=== PATIENT | male | born 1955 | race Caucasian/White ===

== ENCOUNTER 2017-07-17 11:22 | Outpatient (CLI) | payer OTHER | END 2017-07-17 11:23 | disposition home or self-care (01) | LOC: BICRAD 11:22 | PROVIDERS: ATTEND Physician Assistant Medical | DX: R07.9 Chest pain, unspecified (principal) | CPT/HCPCS: 71046 ==

== ENCOUNTER 2018-08-09 09:10 | Inpatient (IN) | payer OTHER ==
[~2018-08-09 09:10] MED LIST: Heparin 1,000 UNITS/ML VIAL ONE
[2018-08-09] MEDS ORDERED: Lidocaine 1% w/Epinephrine 1:100K 20 ML VIAL ONE (09:15)
[2018-08-09] MEDS ORDERED: Adacel (T-DAP) 0.5 ML SYRINGE ONE (09:16)
[2018-08-09] MEDS ORDERED: Fentanyl 100 MCG/2 ML VIAL ONE ×6 (09:18→14:59)
[2018-08-09 09:32] LABS: PTT 22.9 SEC (22.9-36.1); Prothrombin Time 12.9 SEC (12.0-14.7)
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
[2018-08-09 09:38] LABS: ALT (SGPT) 36 U/L (8-55); AST (SGOT) 32 U/L (5-34); Albumin 4.3 g/dL (3.4-4.8); Alkaline Phosphatase 74 U/L (40-150); Anion Gap 15 mmol/L (10-20); BUN (Urea Nitrogen) 16 mg/dL (8.4-25.7); Bilirubin, Total 0.7 mg/dL (0.2-1.2); Calc. Creatinine Clearance 0 mL/min (70-130); Calcium 9.4 mg/dL (7.8-10.44); Carbon Dioxide 24 mmol/L (23-31); Chloride 102 mmol/L (98-107); Estimated GFR-MDRD 49; Globulin 2.7 g/dL (2.4-3.5); Glucose 245 mg/dL (80-115); Lipase 27 U/L (8-78); Potassium 3.9 mmol/L (3.5-5.1); Sodium 137 mmol/L (136-145)
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
--- NOTE | 2018-08-09 09:53 | CT ---
CT head without contrast: Multiple axial tomograms obtained through the head without IV enhancement. INDICATIONS: Trauma COMPARISON: None FINDINGS: Ventricles have normal size and position. No evidence of intracranial mass, hemorrhage, edema, or infarct. Visualized sinuses and mastoids appear clear. Bony calvarium appears unremarkable. Evidence of scalp injury with gas in the subcutaneous tissues of the scalp superiorly on the right IMPRESSION: No evidence of acute intracranial injury. Evidence of scalp injury superiorly on the right.
[2018-08-09 10:04] LABS: Band 8 % (5-11); Eosinophils 2 % (0-10); Hemoglobin 14.4 g/dL (14.0-18.0); Lymphocytes 16 % (21-51); MDiff Complete? YES; Mean Corpuscular Hemoglobin 29.2 pg (27.0-31.0); Mean Corpuscular Volume 91.5 fL (78.0-98.0); Mean Platelet Volume 8.3 fL (7.4-10.4); Monocytes 4 % (0-10); Neutrophil 61 % (42-75); Platelet Count 271 thou/uL (130-400); Platelet Morphology Comment Appears Adequate; RBC Morphology Normal; Reactive Lymphocytes 8 % (0-10); Red Blood Cell (RBC) Count 4.92 mill/uL (4.70-6.10); White Blood Cell (WBC) Count 20.6 thou/uL (4.8-10.8)
--- NOTE | 2018-08-09 10:07 | CT ---
CT cervical spine without contrast: Multiple axial tones obtained through cervical spine with multiplanar reconstruction. INDICATIONS: Trauma COMPARISON: none FINDINGS: Cervical vertebra maintain normal height and alignment.. Moderate degenerative changes. Loss of disc space at C4-5, C5-6, and C6-7. Hypertrophic spurring and spondylosis at these levels is prominent. There is a defect in anterior ring of the right foramen transversarium at C3. This appear to be corti cated and is favored to represent old injury. No other evidence of acute fracture or subluxation. IMPRESSION: Moderate degenerative changes cervical spine. Defect involving the right foramen transversarium at C3 is favored to represent old injury or degenerative change. Discussed with Dr. Briggs
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
--- NOTE | 2018-08-09 10:37 | RAD ---
Radiograph left elbow 4 views: 08/09/2018 HISTORY: 63-year-old male status post acute traumatic injury to left elbow FINDINGS: No dislocation. No fracture identified. Positioning of lateral view is suboptimal to evaluate for dis placed joint capsule. IMPRESSION: No fracture identified.
--- NOTE | 2018-08-09 10:37 | RAD ---
EXAM: Left tibia-fibula: 4 views INDICATIONS: Trauma COMPARISON: None. FINDINGS: Comminuted displaced fractures involving the distal diaphysis of tibia and fibula. Oblique mildly displaced fracture involving the proximal fibula. IMPRESSION: Tibia fibula fractures as described
--- NOTE | 2018-08-09 10:39 | RAD ---
EXAM: Left knee: 4 views INDICATIONS: Trauma COMPARISON: None. FINDINGS: Oblique minimally displaced fracture involving the proximal fibula. No other fracture at th e knee. No joint effusion. IMPRESSION: Fracture proximal fibula
[2018-08-09 10:42] LABS: Phosphorus 3.3 mg/dL (2.3-4.7)
--- NOTE | 2018-08-09 10:42 | RAD ---
EXAM: Right hand: 3 views INDICATIONS: Trauma COMPARISON: None. FINDINGS: Mildly displaced fractures involving the base of the second and fifth metacarpals at the ca rpometacarpal joints. No other definite fracture. Degenerative changes carpals and IP joints. IMPRESSION: Fractures involving proximal second and fifth metacarpals
[2018-08-09] MEDS ORDERED: Ondansetron ODT 4 MG TAB PO PRN (10:52)
[2018-08-09] MEDS ORDERED: Morphine 2 MG/ML SYRINGE SLOW IVP PRN (10:52)
[2018-08-09] MEDS ORDERED: Morphine 4 MG/ML VIAL SLOW IVP PRN (10:52)
[2018-08-09] MEDS ORDERED: Ondansetron PF 4 MG/2 ML Vial IVP PRN ×2 (10:52→14:43)
[2018-08-09] MEDS ORDERED: Dextrose 50% Abboject 50 ML SYRINGE SLOW IVP PRN (10:52)
[2018-08-09] MEDS ORDERED: Dextrose 5% in Water 1,000 ML IV PRN (10:52)
[2018-08-09] MEDS ORDERED: traMADol HCl 50 MG TAB PO PRN (10:57)
--- NOTE | 2018-08-09 11:09 | RAD ---
EXAM: Left hand: 3 views INDICATIONS: Trauma COMPARISON: None. FINDINGS: Severe DJD at the first carpal metacarpal joint with hypertrophic spurring and joint narrow ing. Collapse of the trapezium which is probably chronic. I cannot exclude fracture from the base of the first metacarpal at the carpometacarpal joint. I cannot exclude fracture of the trapezium. Fracture fragment from the base of the second metacarpal ventrally. Degenerative changes DIP joints and MCP joints. Deformity of the distal first metacarpal appears to r epresent old injury. IMPRESSION: 1. Fracture involving the base of the second metacarpal with fracture extending to the carpometacarpa l joint. 2. Severe DJD at the first carpometacarpal joint. Evidence of fracture fragment from the base of the first metacarpal at this joint.
[2018-08-09] MEDS ORDERED: ISOVUE-370 76%-LOCM 1 ML ONE (11:10)
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
[2018-08-09] MEDS ORDERED: Neomycin-Polymyxin 1 ML AMP ONE (11:35)
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
[2018-08-09] MEDS ORDERED: Lidocaine 1% PF 5 ML VIAL ONE (11:55)
[2018-08-09] MEDS ORDERED: Rocuronium Bromide 10 MG/ML (10ML VIAL) ONE (11:55)
[2018-08-09] MEDS ORDERED: PROPOFOL 200 MG/20 ML VIAL ONE (11:55)
[2018-08-09] MEDS ORDERED: ePHEDrine 50 MG/ML VIAL ONE (11:55)
[2018-08-09] MEDS ORDERED: PHENYLEPHRINE-NS 100 MCG/ML 10 ML SYRINGE ONE (11:55)
[2018-08-09] MEDS ORDERED: Glycopyrrolate 0.2 MG/ML 5 ML SYRINGE ONE (11:55)
[2018-08-09] MEDS ORDERED: Succinylcholine Chloride 20 MG/ML 10 ml SYRINGE FS ONE (11:55)
[2018-08-09] MEDS ORDERED: traMADol HCl 50 MG TAB PO SCH (12:00)
[2018-08-09] MEDS ORDERED: Acetaminophen 1,000 MG in Premix Bag 1 BAG IVPB SCH (12:00)
[2018-08-09] MEDS ORDERED: Phenylephrine HCL 10 MG/ML VIAL ONE (13:05)
[2018-08-09] MEDS ORDERED: Albumin 5% 500 ML ONE (13:05)
[2018-08-09] MEDS ORDERED: Sodium Bicarb 50 MEQ/50 ML Abboject 8.4% SYRINGE ONE (13:08)
--- NOTE | 2018-08-09 14:37 | RAD ---
LEFT TIBIA FIBULA: Two fluoroscopic images from OR presented. INDICATION: Intraoperative imaging during internal fixation. FINDINGS/IMPRESSION: A pin transfixes the distal tibia. POS: OFF
[2018-08-09] MEDS ORDERED: Naloxone HCl 0.4 mg/ml Vial IV PRN (14:43)
[2018-08-09] MEDS ORDERED: Zolpidem Tartrate 5 MG TAB PO PRN (14:43)
[2018-08-09] MEDS ORDERED: Promethazine HCl 25 MG/ML VIAL SLOW IVP PRN (14:43)
[2018-08-09] MEDS ORDERED: Ketorolac Tromethamine 30 MG/ML VIAL IVP PRN (14:43)
[2018-08-09] MEDS ORDERED: Ondansetron HCl/PF 4 MG/2 ML Vial IVP PRN (14:43)
[2018-08-09] MEDS ORDERED: diphenhydrAMINE 50 MG/ML VIAL IVP PRN (14:43)
[2018-08-09] MEDS ORDERED: Promethazine HCl 25 MG/ML VIAL IM PRN ×2 (14:43)
[2018-08-09] MEDS ORDERED: diphenhydrAMINE 50 MG/ML VIAL IM PRN (14:43)
[2018-08-09] MEDS ORDERED: HYDROmorphone 2 MG/ML VIAL SLOW IVP PRN (14:43)
[2018-08-09] MEDS ORDERED: fentaNYL Citrate/PF 2,000 MCG in Sodium Chloride 0.9% 60 ML IV PRN (14:43)
[2018-08-09] MEDS ORDERED: diphenhydrAMINE 25 MG CAP PO PRN (14:43)
[2018-08-09] MEDS ORDERED: PACU-Morphine 4MG/ML VIAL SLOW IVP PRN (14:43)
[2018-08-09] MEDS ORDERED: Communication Order-Pharmacy FS SCH (14:45)
[2018-08-09] MEDS ORDERED: HYDROmorphone 2 MG/ML VIAL ONE (15:16)
[2018-08-09 17:50] VITALS: BMI 37.9
[2018-08-09] MEDS: Gabapentin 300 MG CAP PO SCH ×2 (18:12→21:18)
[2018-08-09] MEDS: CEFAZOLIN 2 GM in Premix Bag 1 BAG IVPB SCH (18:20)
[2018-08-09] MEDS: Sodium Chloride 0.9% 1,000 ML IV SCH ×2 (18:21)
--- NOTE | 2018-08-09 20:02 | PDOC.EVN ---
Event Note - Event Note Event Note: The patient was evaluated after OR. He is awake , alert and oriented X4. GCS 15. Denies neck pain, Neck assessment normal, no tenderness or step off. No pain with full ROM. C-spine cleared. Laceration noted behind left ear. Site cleaned and steri strips applied per patient request. Tolerating full liquid diet. Will advance as tolerated.
[2018-08-09] MEDS ORDERED: Silver Sulfadiazine 1% Cream 50 GM TUBE TP SCH (21:00)
[2018-08-09] MEDS: Silver Sulfadiazine 1% Cream 50 GM JAR TOP SCH (21:17)
[2018-08-09] MEDS: Senokot S 8.6-50 MG TAB PO SCH (21:18)
[2018-08-09] MEDS: Bacitracin Zinc 1 Packet TOP SCH (21:18)
[2018-08-09] MEDS: Famotidine/PF 20 mg/2ml Vial SLOW IVP SCH (21:18)
[2018-08-10] MEDS ORDERED: Acetaminophen 500 MG TAB PO SCH
[2018-08-10] MEDS: CEFAZOLIN 2 GM in Premix Bag 1 BAG IVPB SCH ×3 (01:00→18:21)
[2018-08-10] MEDS: Sodium Chloride 0.9% 1,000 ML IV SCH ×3 (03:35→20:20)
[2018-08-10] MEDS: Cyclobenzaprine 10 MG TAB PO PRN ×2 (04:54→21:03)
[2018-08-10] MEDS ORDERED: Lactated Ringer's 500 ML IV SCH ×2 (08:30→08:45)
--- NOTE | 2018-08-10 08:36 | RAD ---
PORTABLE CHEST: HISTORY: Followup chest tube. COMPARISON: 08/09/2018. FINDINGS/IMPRESSION: Right chest tube is again noted. Subcutaneous emphysema on the right is seen. The patient is rotate d which mildly distorts the chest. There is a suggestion of a tiny right apical pneumothorax. The left lung appears expanded and clear. The right rib fractures have been previously described. POS: OFF
[2018-08-10 09:01] LABS: Anion Gap 16 mmol/L (10-20); BUN (Urea Nitrogen) 35 mg/dL (8.4-25.7); Calc. Creatinine Clearance 47 mL/min (70-130); Calcium 7.9 mg/dL (7.8-10.44); Carbon Dioxide 19 mmol/L (23-31); Chloride 108 mmol/L (98-107); Estimated GFR-MDRD 22; Glucose 145 mg/dL (80-115); Magnesium 1.5 mg/dL (1.6-2.6); Phosphorus 2.8 mg/dL (2.3-4.7); Potassium 5.6 mmol/L (3.5-5.1); Sodium 137 mmol/L (136-145)
[2018-08-10] MEDS ORDERED: HYDROcodone/Acetaminophen 10/325 mg Tablet PO PRN (09:06)
[2018-08-10] MEDS ORDERED: Loratadine 10 MG TAB PO PRN (09:06)
[2018-08-10 09:32] LABS: #Lymphocytes 2.5 thou/uL (1.20-3.40); #Neutrophils 9.9 thou/uL (1.40-6.50); %Basophils 0.2 % (0.0-1.0); %Eosinophils 0.1 % (0.0-10.0); %Lymphocytes 17.2 % (21.0-51.0); %Neutrophils 68.4 % (42.0-75.0); Hemoglobin 11.2 g/dL (14.0-18.0); Mean Corpuscular HGB CONC 31.6 g/dL (32.0-36.0); Mean Corpuscular Hemoglobin 29.4 pg (27.0-31.0); Mean Corpuscular Volume 93.2 fL (78.0-98.0); Mean Platelet Volume 8.5 fL (7.4-10.4); Platelet Count 202 thou/uL (130-400); RBC Distribution Width 12.2 % (11.5-14.5); Red Blood Cell (RBC) Count 3.82 mill/uL (4.70-6.10); White Blood Cell (WBC) Count 14.5 thou/uL (4.8-10.8)
[2018-08-10] MEDS: Polyethylene Glycol 3350 17 GM Packet PO SCH (09:36)
[2018-08-10] MEDS: Bacitracin Zinc 1 Packet TOP SCH ×2 (09:36→20:13)
[2018-08-10] MEDS: Gabapentin 300 MG CAP PO SCH ×3 (09:36→20:14)
[2018-08-10] MEDS: Senokot S 8.6-50 MG TAB PO SCH ×2 (09:37→20:14)
[2018-08-10] MEDS: Famotidine/PF 20 mg/2ml Vial SLOW IVP SCH (09:37)
[2018-08-10] MEDS: Silver Sulfadiazine 1% Cream 50 GM JAR TOP SCH ×2 (09:41→20:15)
[2018-08-10] MEDS: Bupropion 150 MG XL TAB PO SCH (10:03)
[2018-08-10] MEDS: busPIRone HCl 5 MG TAB PO SCH ×2 (10:03→20:14)
[2018-08-10] MEDS ORDERED: Magnesium Sulfate 4 GM in Sodium Chloride 0.9% 250 ML 250 ML IVPB SCH (10:45)
[2018-08-10] MEDS ORDERED: Magnesium 2 GM/50 ML 4 GM in Premix Bag 1 BAG IVPB SCH (10:45)
[2018-08-10] MEDS ORDERED: Sodium Chloride 0.9% 500 ML IV SCH (10:45)
[2018-08-10] MEDS ORDERED: Lidocaine 5% Patch TD SCH (12:30)
[2018-08-10] MEDS: Acetaminophen 500 MG TAB PO SCH ×2 (12:37→18:20)
--- NOTE | 2018-08-10 13:50 | RAD ---
LEFT HAND: Two fluoroscopic views from OR are presented. INDICATION: Imaging during intraoperative fixation open reduction internal fixation. FINDINGS/IMPRESSION: There is a pin transfixing the 2nd carpometacarpal joint and extending into the scaphoid. POS: OFF
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
[2018-08-10] MEDS: Atorvastatin Calcium 40 MG TAB PO SCH (20:15)
[2018-08-10] MEDS ORDERED: Lisinopril 10 MG TAB PO SCH (21:00)
[2018-08-10] MEDS ORDERED: Lidocaine Patch Removal 1 EACH TOP SCH (21:00)
[2018-08-10] MEDS ORDERED: Non-Formulary Item 1 EACH (Buspirone Hcl [Buspirone Hcl] 15 MG) PO SCH (21:00)
[2018-08-11] MEDS: Acetaminophen 500 MG TAB PO SCH ×2 (00:44→05:29)
[2018-08-11] MEDS: CEFAZOLIN 2 GM in Premix Bag 1 BAG IVPB SCH ×3 (01:37→20:59)
[2018-08-11] MEDS: Sodium Chloride 0.9% 1,000 ML IV SCH ×3 (05:29→21:24)
[2018-08-11 06:24] LABS: Band 30 % (5-11); Eosinophils 3 % (0-10); Hemoglobin 9.5 g/dL (14.0-18.0); Lymphocytes 30 % (21-51); MDiff Complete? YES; Mean Corpuscular HGB CONC 33.1 g/dL (32.0-36.0); Mean Corpuscular Hemoglobin 30.4 pg (27.0-31.0); Mean Corpuscular Volume 91.8 fL (78.0-98.0); Mean Platelet Volume 8.8 fL (7.4-10.4); Monocytes 2 % (0-10); Neutrophil 35 % (42-75); Platelet Count 161 thou/uL (130-400); Platelet Morphology Comment Appears Adequate; RBC Distribution Width 12.2 % (11.5-14.5); Red Blood Cell (RBC) Count 3.11 mill/uL (4.70-6.10); White Blood Cell (WBC) Count 9.8 thou/uL (4.8-10.8)
[2018-08-11 06:28] LABS: Anion Gap 12 mmol/L (10-20); BUN (Urea Nitrogen) 37 mg/dL (8.4-25.7); Calc. Creatinine Clearance 99 mL/min (70-130); Calcium 7.9 mg/dL (7.8-10.44); Carbon Dioxide 22 mmol/L (23-31); Chloride 106 mmol/L (98-107); Estimated GFR-MDRD 51; Glucose 111 mg/dL (80-115); Magnesium 2.1 mg/dL (1.6-2.6); Phosphorus 2.2 mg/dL (2.3-4.7); Potassium 4.8 mmol/L (3.5-5.1); Sodium 135 mmol/L (136-145)
--- NOTE | 2018-08-11 07:51 | RAD ---
Chest one view HISTORY: Pneumothorax. Follow-up. COMPARISON: 08/10/2018. FINDINGS: Cardiac silhouette is magnified and enlarged. Pulmonary vasculature remains slightly engorg ed. Right thoracostomy tube is in place with sidehole at the level of the right lateral chest wall. Small right apical pneumothorax has decreased slightly in size. Small amount right chest wall gas is again demonstrated. Left lung is well-inflated. IMPRESSION: Interval decrease in now tiny right apical pneumothorax. Other findings are stable.
[2018-08-11] MEDS ORDERED: Sodium Phosphate 30 MMOL in Sodium Chloride 0.9% 250 ML 250 ML IVPB SCH (08:00)
[2018-08-11] MEDS ORDERED: Famotidine/PF 20 mg/2ml Vial SLOW IVP SCH (09:00)
[2018-08-11] MEDS ORDERED: Lidocaine 5% Patch TD SCH (09:00)
[2018-08-11] MEDS: Gabapentin 300 MG CAP PO SCH ×3 (09:06→20:07)
[2018-08-11] MEDS: Famotidine/PF 20 mg/2ml Vial SLOW IVP SCH ×3 (09:07→20:08)
[2018-08-11] MEDS: Bacitracin Zinc 1 Packet TOP SCH ×2 (09:07→20:06)
[2018-08-11] MEDS: Polyethylene Glycol 3350 17 GM Packet PO SCH (09:14)
[2018-08-11] MEDS: Senokot S 8.6-50 MG TAB PO SCH ×2 (09:15→20:07)
[2018-08-11] MEDS: HYDROcodone/Acetaminophen 10/325 mg Tablet PO SCH ×3 (11:07→20:05)
[2018-08-11] MEDS: busPIRone HCl 5 MG TAB PO SCH ×2 (11:08→20:06)
[2018-08-11] MEDS: Bupropion 150 MG XL TAB PO SCH (11:09)
[2018-08-11] MEDS ORDERED: Acetaminophen 650 MG/20.3 ML UDCUP PO SCH (12:00)
[2018-08-11] MEDS ORDERED: Ondansetron PF 4 MG/2 ML Vial ONE (13:06)
[2018-08-11] MEDS ORDERED: PROPOFOL 200 MG/20 ML VIAL ONE (13:06)
[2018-08-11] MEDS ORDERED: Lidocaine 1% PF 5 ML VIAL ONE (13:06)
[2018-08-11 13:11] LABS: Actual Bicarbonate (HCO3a) 19.1 mEq/L (22-28); Analyzer IN Cardio OR; CO2 Tension 40.4 mmHg (35.0-45.0); Calcium, Ionized 1.13 mmol/L (1.12-1.30); Carboxyhemoglobin (COHb) 0.3 gm% (0.0-3.0); Hemoglobin (Hb) 12.6 g/dL (14.0-18.0); O2 Tension (PaO2) 281.9 mmHg (> 80.0); Potassium - ABG Lab 4.73 mmol/L (3.70-5.30); pH, Arterial 7.29 (7.35-7.45)
[2018-08-11 13:12] LABS: Actual Bicarbonate (HCO3a) 20.2 mEq/L (22-28); Analyzer IN Cardio OR; CO2 Tension 42.1 mmHg (35.0-45.0); Calcium, Ionized 1.13 mmol/L (1.12-1.30); O2 Tension (PaO2) 331.6 mmHg (> 80.0); Potassium - ABG Lab 4.73 mmol/L (3.70-5.30)
[2018-08-11 13:17] LABS: Puncture Site ALINE
[2018-08-11 13:17] LABS: Puncture Site ALINE
[2018-08-11] MEDS ORDERED: Morphine 10 MG/ML VIAL ONE (14:00)
--- NOTE | 2018-08-11 15:34 | RAD ---
Left lower leg 2 views intraoperative fluoroscopy HISTORY: Fracture. FINDINGS: Intraoperative fluoroscopy was provided for internal fixation has performed by Dr. Natasha edwards. Spot fluoroscopic images show medial compression side plate and multiple screws transfixing the comminuted distal tibial fracture, in anatomic alignment. Fluoroscopy time 17 seconds.
[2018-08-11] MEDS ORDERED: HYDROmorphone 2 MG/ML VIAL SLOW IVP PRN (15:59)
[2018-08-11] MEDS ORDERED: Promethazine HCl 25 MG/ML VIAL IM PRN (15:59)
[2018-08-11] MEDS ORDERED: Promethazine HCl 25 MG/ML VIAL SLOW IVP PRN (15:59)
[2018-08-11] MEDS ORDERED: Ondansetron HCl/PF 4 MG/2 ML Vial IVP PRN (15:59)
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
[2018-08-11] MEDS: Acetaminophen 325 MG TAB PO SCH ×2 (18:17→23:03)
[2018-08-11 18:30] LABS: Hemoglobin 8.8 g/dL (14.0-18.0); Lactic Acid 1.5 mmol/L (0.5-2.2); Mean Corpuscular HGB CONC 31.8 g/dL (32.0-36.0); Mean Corpuscular Hemoglobin 29.4 pg (27.0-31.0); Mean Corpuscular Volume 92.5 fL (78.0-98.0); Mean Platelet Volume 8.3 fL (7.4-10.4); Platelet Count 155 thou/uL (130-400); Red Blood Cell (RBC) Count 2.98 mill/uL (4.70-6.10); White Blood Cell (WBC) Count 8.2 thou/uL (4.8-10.8)
[2018-08-11 18:32] LABS: Anion Gap 11 mmol/L (10-20); BUN (Urea Nitrogen) 35 mg/dL (8.4-25.7); Calc. Creatinine Clearance 110 mL/min (70-130); Calcium 7.7 mg/dL (7.8-10.44); Carbon Dioxide 23 mmol/L (23-31); Chloride 108 mmol/L (98-107); Estimated GFR-MDRD 58; Glucose 117 mg/dL (80-115); Magnesium 2.2 mg/dL (1.6-2.6); Potassium 4.7 mmol/L (3.5-5.1); Sodium 137 mmol/L (136-145)
[2018-08-11 18:37] LABS: Phosphorus 2.8 mg/dL (2.3-4.7)
[2018-08-11 18:51] LABS: Band 24 % (5-11); Eosinophils 2 % (0-10); Lymphocytes 31 % (21-51); MDiff Complete? YES; Monocytes 5 % (0-10); Myelocyte 1 % (0-0); Neutrophil 37 % (42-75); Platelet Morphology Comment Appears Adequate; Polychromasia MODERATE = 3-4 cells (100X) (0-2/hpf)
[2018-08-11] MEDS: Atorvastatin Calcium 40 MG TAB PO SCH (20:06)
[2018-08-11] MEDS ORDERED: Lidocaine Patch Removal 1 EACH TOP SCH (21:00)
[2018-08-11] MEDS: Lidocaine 5% Patch TD SCH (21:06)
[2018-08-11] MEDS: hydrALAZINE 20 MG/ML VIAL SLOW IVP PRN (22:57)
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
[2018-08-12] MEDS: HYDROcodone/Acetaminophen 10/325 mg Tablet PO SCH ×4 (03:40→22:27)
[2018-08-12 05:19] LABS: Anion Gap 14 mmol/L (10-20); BUN (Urea Nitrogen) 28 mg/dL (8.4-25.7); Calc. Creatinine Clearance 160 mL/min (70-130); Calcium 7.4 mg/dL (7.8-10.44); Carbon Dioxide 20 mmol/L (23-31); Chloride 108 mmol/L (98-107); Estimated GFR-MDRD 90; Glucose 98 mg/dL (80-115); Magnesium 2.4 mg/dL (1.6-2.6); Phosphorus 2.3 mg/dL (2.3-4.7); Potassium 5.9 mmol/L (3.5-5.1); Sodium 136 mmol/L (136-145)
[2018-08-12] MEDS: Acetaminophen 325 MG TAB PO SCH ×3 (05:38→19:42)
[2018-08-12] MEDS: Heparin 5,000 UNITS/ML VIAL SC SCH ×3 (05:38→22:30)
[2018-08-12] MEDS: CEFAZOLIN 2 GM in Premix Bag 1 BAG IVPB SCH ×3 (05:38→22:30)
[2018-08-12] MEDS: Sodium Chloride 0.9% 1,000 ML IV SCH (05:52)
[2018-08-12 07:55] LABS: Hemoglobin 8.5 g/dL (14.0-18.0); Mean Corpuscular HGB CONC 31.7 g/dL (32.0-36.0); Mean Corpuscular Hemoglobin 29.9 pg (27.0-31.0); Mean Corpuscular Volume 94.3 fL (78.0-98.0); Mean Platelet Volume 8.3 fL (7.4-10.4); Platelet Count 171 thou/uL (130-400); RBC Distribution Width 12.3 % (11.5-14.5); Red Blood Cell (RBC) Count 2.85 mill/uL (4.70-6.10); White Blood Cell (WBC) Count 8.4 thou/uL (4.8-10.8)
--- NOTE | 2018-08-12 08:04 | RAD ---
AP CHEST: Date: 08/12/18 HISTORY: Follow-up chest tube. Shortness of breath. COMPARISON: 08/11/18. FINDINGS: Right chest tube unchanged. Right subcutaneous emphysema unchanged. Cardiomegaly with vascular conges tion is stable. Possible tiny right pneumothorax again noted. IMPRESSION: No significant interval change. POS: OFF
[2018-08-12 08:06] LABS: Lactic Acid 1.6 mmol/L (0.5-2.2)
[2018-08-12 08:18] LABS: Band 22 % (5-11); Eosinophils 1 % (0-10); Hypochromia SLIGHT = 6-15 cells (100X) (0-5/hpf); Lymphocytes 20 % (21-51); MDiff Complete? YES; Monocytes 4 % (0-10); Neutrophil 53 % (42-75); Platelet Morphology Comment Appears Adequate
[2018-08-12] MEDS: Bupropion 150 MG XL TAB PO SCH (09:48)
[2018-08-12] MEDS: Amlodipine 5 MG TAB PO SCH (09:48)
[2018-08-12] MEDS: Polyethylene Glycol 3350 17 GM Packet PO SCH (09:48)
[2018-08-12] MEDS: Gabapentin 300 MG CAP PO SCH ×3 (09:48→22:30)
[2018-08-12] MEDS: Senokot S 8.6-50 MG TAB PO SCH ×2 (09:49→22:34)
[2018-08-12] MEDS: busPIRone HCl 5 MG TAB PO SCH ×2 (09:50→22:28)
[2018-08-12] MEDS: Famotidine/PF 20 mg/2ml Vial SLOW IVP SCH ×2 (09:51→22:29)
[2018-08-12] MEDS: Bacitracin Zinc 1 Packet TOP SCH ×2 (09:51→22:28)
[2018-08-12 10:39] LABS: Potassium 4.3 mmol/L (3.5-5.1)
[2018-08-12] MEDS: Lidocaine Patch Removal 1 EACH TOP SCH (11:03)
--- NOTE | 2018-08-12 11:53 | SPC ---
Sonographic guided left upper extremity PICC HISTORY: Trauma. Infection. Need for long-term antibiotics. FINDINGS: After explaining the procedure and answering all questions, the left upper extremity was pr epped and draped in usual sterile fashion. Sterile technique, buffered local anesthesia, sonographic guidance, and a 22-gauge needle were used to carefully access the left basilic vein. Reinaldo dard technique was used to place the tip of a 5 Yoruba dual-lumen PICC at the level of the cavoatrial junction. Catheter was flushed and secured externally. Patient tolerated the procedure wel l and was returned in unchanged condition. Fluoroscopy time 0 seconds. IMPRESSION: Left upper extremity PICC ready for use
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
[2018-08-12] MEDS: Atorvastatin Calcium 40 MG TAB PO SCH (22:28)
[2018-08-12] MEDS: Lidocaine 5% Patch TD SCH (22:30)
[2018-08-13] MEDS: Acetaminophen 325 MG TAB PO SCH ×5 (01:08→23:37)
[2018-08-13] MEDS: HYDROcodone/Acetaminophen 10/325 mg Tablet PO SCH ×4 (02:03→21:09)
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
[2018-08-13] MEDS: CEFAZOLIN 2 GM in Premix Bag 1 BAG IVPB SCH ×3 (05:35→21:10)
[2018-08-13 06:29] LABS: Band 20 % (5-11); Eosinophils 3 % (0-10); Hemoglobin 7.7 g/dL (14.0-18.0); Lymphocytes 12 % (21-51); MDiff Complete? YES; Mean Corpuscular HGB CONC 33.2 g/dL (32.0-36.0); Mean Corpuscular Hemoglobin 30.3 pg (27.0-31.0); Mean Corpuscular Volume 91.4 fL (78.0-98.0); Mean Platelet Volume 8.1 fL (7.4-10.4); Metamyelocyte 1 % (0-0); Monocytes 12 % (0-10); Neutrophil 50 % (42-75); Nucleated RBC 1 % (0); Platelet Count 181 thou/uL (130-400); Platelet Morphology Comment Appears Adequate; RBC Distribution Width 12.1 % (11.5-14.5); Red Blood Cell (RBC) Count 2.55 mill/uL (4.70-6.10); White Blood Cell (WBC) Count 8.3 thou/uL (4.8-10.8)
[2018-08-13] MEDS: Heparin 5,000 UNITS/ML VIAL SC SCH ×3 (06:30→21:13)
[2018-08-13 06:38] LABS: Anion Gap 6 mmol/L (10-20); BUN (Urea Nitrogen) 15 mg/dL (8.4-25.7); Calc. Creatinine Clearance 194 mL/min (70-130); Carbon Dioxide 30 mmol/L (23-31); Chloride 102 mmol/L (98-107); Estimated GFR-MDRD Greater than 90; Glucose 99 mg/dL (80-115); Magnesium 1.9 mg/dL (1.6-2.6); Phosphorus 1.8 mg/dL (2.3-4.7); Potassium 4.1 mmol/L (3.5-5.1); Sodium 134 mmol/L (136-145)
[2018-08-13] MEDS ORDERED: Sodium Phosphate 30 MMOL in Sodium Chloride 0.9% 250 ML 250 ML IVPB SCH (07:15)
[2018-08-13] MEDS: Senokot S 8.6-50 MG TAB PO SCH ×2 (09:18→21:09)
[2018-08-13] MEDS: busPIRone HCl 5 MG TAB PO SCH ×2 (09:19→21:08)
[2018-08-13] MEDS: Bupropion 150 MG XL TAB PO SCH (09:19)
[2018-08-13] MEDS: Gabapentin 300 MG CAP PO SCH ×3 (09:19→21:09)
[2018-08-13] MEDS: Bacitracin Zinc 1 Packet TOP SCH ×2 (09:20→21:09)
[2018-08-13] MEDS: Amlodipine 5 MG TAB PO SCH (09:20)
[2018-08-13] MEDS: Famotidine/PF 20 mg/2ml Vial SLOW IVP SCH ×2 (09:20→21:09)
[2018-08-13] MEDS: Lidocaine Patch Removal 1 EACH TOP SCH (09:21)
[2018-08-13] MEDS: Polyethylene Glycol 3350 17 GM Packet PO SCH (09:21)
[2018-08-13] MEDS ORDERED: Sodium Chloride 0.9% 10 ML ONE (14:17)
[2018-08-13] MEDS ORDERED: Bupivacaine PF 0.5% 30 ML VIAL ONE (14:17)
[2018-08-13] MEDS ORDERED: Bacitracin Zinc Ointment 30 gm TUBE ONE (14:17)
[2018-08-13] MEDS ORDERED: Sodium Chloride 0.9% 0 ML ONE (14:21)
[2018-08-13] MEDS ORDERED: Fentanyl 100 MCG/2 ML VIAL ONE (14:49)
[2018-08-13] MEDS ORDERED: Dexamethasone 20 MG/5 ML VIAL ONE (15:12)
[2018-08-13] MEDS ORDERED: PROPOFOL 200 MG/20 ML VIAL ONE (15:12)
[2018-08-13] MEDS ORDERED: Metoclopramide HCl 10 MG/2 ML VIAL ONE (15:12)
[2018-08-13] MEDS ORDERED: diphenhydrAMINE 50 MG/ML VIAL ONE (15:12)
[2018-08-13] MEDS ORDERED: Ondansetron PF 4 MG/2 ML Vial ONE (15:12)
[2018-08-13] MEDS ORDERED: Lidocaine 1% PF 5 ML VIAL ONE (15:12)
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
[2018-08-13] MEDS ORDERED: Labetalol HCl 100 MG/20 ML VIAL ONE (17:48)
[2018-08-13] MEDS ORDERED: Labetalol HCl 100 MG/20 ML VIAL SLOW IVP PRN (18:26)
[2018-08-13] MEDS ORDERED: Labetalol HCl 100 MG/20 ML VIAL SLOW IVP SCH (18:30)
[2018-08-13] MEDS: hydrALAZINE 20 MG/ML VIAL SLOW IVP PRN (19:14)
[2018-08-13] MEDS: Atorvastatin Calcium 40 MG TAB PO SCH (21:09)
[2018-08-13] MEDS: Vancomycin HCl 1 GM in Premix Bag 1 BAG IVPB SCH (21:10)
[2018-08-13] MEDS: Lidocaine 5% Patch TD SCH (21:11)
[2018-08-13] MEDS: Ferrous Sulfate 325 MG TAB PO SCH (22:42)
[2018-08-13] MEDS: Cyclobenzaprine 10 MG TAB PO PRN (23:52)
[2018-08-14] MEDS: HYDROcodone/Acetaminophen 10/325 mg Tablet PO SCH ×4 (02:53→20:15)
[2018-08-14] MEDS: Acetaminophen 325 MG TAB PO SCH ×4 (05:14→23:02)
[2018-08-14] MEDS: Heparin 5,000 UNITS/ML VIAL SC SCH ×3 (05:14→21:47)
[2018-08-14 05:31] LABS: #Lymphocytes 1.3 thou/uL (1.20-3.40); #Monocytes 1.3 thou/uL (0.11-0.59); #Neutrophils 7.3 thou/uL (1.40-6.50); %Basophils 0.2 % (0.0-1.0); %Eosinophils 0.3 % (0.0-10.0); %Lymphocytes 12.9 % (21.0-51.0); %Monocytes 13.3 % (0.0-10.0); %Neutrophils 73.3 % (42.0-75.0); Hemoglobin 7.8 g/dL (14.0-18.0); Mean Corpuscular HGB CONC 32.2 g/dL (32.0-36.0); Mean Corpuscular Hemoglobin 29.7 pg (27.0-31.0); Mean Corpuscular Volume 92.2 fL (78.0-98.0); Mean Platelet Volume 7.7 fL (7.4-10.4); Platelet Count 219 thou/uL (130-400); RBC Distribution Width 12.4 % (11.5-14.5); Red Blood Cell (RBC) Count 2.63 mill/uL (4.70-6.10); White Blood Cell (WBC) Count 9.9 thou/uL (4.8-10.8)
--- NOTE | 2018-08-14 07:24 | RAD ---
Exam: Right hand 2 views: 5 portable fluoroscopic spot images are presented for interpretation. HISTORY: Status post ORIF Pin stabilizing the second metacarpal and metal plate and screws stabilize the base of the fifth meta carpal. IMPRESSION: Status post ORIF.
--- NOTE | 2018-08-14 07:29 | RAD ---
Exam: Chest one view: HISTORY: Follow-up chest tube. COMPARISON: 08/12/2018 FINDINGS: Right-sided chest tube with some patchy mostly pleural opacity changes and some right rib fractures. Left PICC line. Heart size and left lung are unremarkable. IMPRESSION: Stable pleural changes and right chest tube with right rib fractures.
[2018-08-14] MEDS: Vancomycin HCl 1 GM in Premix Bag 1 BAG IVPB SCH ×2 (08:23→20:18)
[2018-08-14] MEDS: Lidocaine Patch Removal 1 EACH TOP SCH (08:26)
[2018-08-14] MEDS: Bacitracin Zinc 1 Packet TOP SCH ×2 (08:26→20:15)
[2018-08-14] MEDS: Ascorbic Acid 500 mg Chewable Tablet PO SCH (08:26)
[2018-08-14] MEDS: busPIRone HCl 5 MG TAB PO SCH ×2 (08:26→20:17)
[2018-08-14] MEDS: Polyethylene Glycol 3350 17 GM Packet PO SCH (08:27)
[2018-08-14] MEDS: Gabapentin 300 MG CAP PO SCH ×3 (08:27→20:17)
[2018-08-14] MEDS: Bupropion 150 MG XL TAB PO SCH (08:27)
[2018-08-14] MEDS: Ferrous Sulfate 325 MG TAB PO SCH ×2 (08:27→17:47)
[2018-08-14] MEDS: Famotidine/PF 20 mg/2ml Vial SLOW IVP SCH (08:27)
[2018-08-14] MEDS: Senokot S 8.6-50 MG TAB PO SCH ×2 (08:27→20:17)
[2018-08-14] MEDS: Amlodipine 5 MG TAB PO SCH (08:27)
[2018-08-14] MEDS: hydrALAZINE 20 MG/ML VIAL SLOW IVP PRN (10:58)
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
[2018-08-14] MEDS: Atorvastatin Calcium 40 MG TAB PO SCH (20:17)
[2018-08-14] MEDS: Lidocaine 5% Patch TD SCH (20:17)
[2018-08-14] MEDS: Cyclobenzaprine 10 MG TAB PO PRN (23:02)
[2018-08-15] MEDS: HYDROcodone/Acetaminophen 10/325 mg Tablet PO SCH ×2 (02:39→08:57)
[2018-08-15] MEDS: Acetaminophen 325 MG TAB PO SCH ×4 (05:49→23:41)
[2018-08-15] MEDS: Heparin 5,000 UNITS/ML VIAL SC SCH ×3 (05:50→21:24)
[2018-08-15] MEDS ORDERED: Amlodipine 5 MG TAB PO SCH ×3 (06:39→10:30)
--- NOTE | 2018-08-15 07:59 | RAD ---
XR Chest 1 View Portable HISTORY: Chest tube removal follow-up COMPARISON: Previous day FINDINGS: No significant interval change is seen since the previous day's exam. IMPRESSION: Stable exam
[2018-08-15] MEDS: Gabapentin 300 MG CAP PO SCH ×3 (08:56→20:30)
[2018-08-15] MEDS: Polyethylene Glycol 3350 17 GM Packet PO SCH (08:56)
[2018-08-15] MEDS: Ascorbic Acid 500 mg Chewable Tablet PO SCH (08:56)
[2018-08-15] MEDS: Ferrous Sulfate 325 MG TAB PO SCH ×2 (08:57→18:33)
[2018-08-15] MEDS: Senokot S 8.6-50 MG TAB PO SCH ×2 (08:57→20:30)
[2018-08-15] MEDS: busPIRone HCl 5 MG TAB PO SCH ×2 (08:58→20:29)
[2018-08-15] MEDS: Bupropion 150 MG XL TAB PO SCH (08:58)
[2018-08-15] MEDS: Bacitracin Zinc 1 Packet TOP SCH ×2 (08:58→20:29)
[2018-08-15] MEDS ORDERED: Bisacodyl 10 MG SUPP PR SCH (09:00)
[2018-08-15] MEDS: Lidocaine Patch Removal 1 EACH TOP SCH (09:17)
[2018-08-15] MEDS: HYDROcodone/Acetaminophen 10/325 mg Tablet PO PRN ×2 (13:08→20:31)
[2018-08-15] MEDS: traMADol HCl 50 MG TAB PO SCH ×3 (13:09→23:41)
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
--- NOTE | 2018-08-15 18:06 | OP ---
DATE OF PROCEDURE: 08/13/2018 PREOPERATIVE DIAGNOSES: 1. Right upper extremity superficial wounds, digits multiple to include nail bed hematoma. 2. Displaced base of the right index finger metacarpal fracture. 3. Right small finger metacarpal base fracture. On the left side with a total of 10 cm wound, divided equally, approximately 3 cm on the dorsal index, dorsal long, dorsal ring fingers just proximal to the MP joint extra-articular and with findings of no tendon involvement. 4. Protruding K-wire approximately 1 cm, but bent. 5. Elbow laceration posterior over olecranon 3.5 cm. PROCEDURE PERFORMED: 1. On the right side, debridement of nailbed hematoma using the following techniques. a. Excision of subungual with a Anita and a small curette and irrigated with approximately 50 mL of normal saline each site, and we did not violate the nail bed. 2. On the right side is open reduction internal fixation of the base of the small finger fracture. 3. On the right side is closed reduction and pinning x2, 0.045 K-wires of the index finger metacarpal base fracture. 4. C-arm supervision. 5. On the left side, we had debridement of wounds, hand level, total of 10 cm, approximately 3.5 cm over 3 different metacarpal bases finding no tendon involvement. 6. Closure of wounds, 10 cm total. 7. Modification of K-wire, (cut K-wire short) at the second carpometacarpal joint subluxation, it has now reduced anatomically by previous surgery. 8. Debridement of wound elbow, [address]92 depth down to but not including the joint, tendon. 9. We performed the closure of that same 3.5 to 4 cm wound. INDICATION: The patient returns for and evaluation of the hand with possible fixation though we had edema at the right upper extremity. DESCRIPTION OF PROCEDURE: The limb had bilateral prepping and draping, we placed a sterile tourniquet on the left because he had a higher level arm PICC line and an unsterile tourniquet on the right. Right first, we immediately did the debridement listed above on the nail bed, found no nailbed violation and irrigated the hematomas which were all less than 50%, had no fracture. We then brought the C-arm to the field, was able to reduce anatomically the base of the index finger metacarpal fracture and then passed two K-wires, one from distal to proximal, one intramedullary proximal to distal and held it in great position that was stable to rotation. We then tried closed reduction times multiple on the right small finger base fracture but, we were unable to change ankle reduction, so we exsanguinated the limb, inflated tourniquet to 250 mmHg pressure made a zigzag incision over the base of the metacarpal of right small finger, carried incision through skin, subcutaneous tissue, protecting the superficial branch ulnar nerve and then slightly extensor tendons ulnarly and radially, we exposed the fracture. We cleaned the fracture of hematoma, and gently reduced and held anatomic with a clamp. We then placed a T-handle plate with four screw holes distal to the fracture, one over the fracture and two screw holes proximal. We placed 2-0 screws through this plate proximally, and then across the fracture with anatomic position maintained to include no malrotation or shortening after the screw has been placed. The patient then had tourniquet deflated on the right side, we closed the wounds without evidence of anesthetic or operative complication. We then placed a bulky dressing on this side. We approached the left side and here, opened each wound of 3.5 to 3.75 cm wounds first on the index and the long, then the ring finger dorsal and inspected the tendons. They were now cut through, small hematoma was evacuated. We irrigated each wound with approximately 500 mL each. We debrided the wound edges with a tenotomy scissor circumferentially each wound making a slightly wider but we were still able to close them with interrupted 4-0 nylon suture in a mattress pattern. We saw the K-wire in order to better allow the patient cut the K-wire at the level of the skin with 1 cm removed. Finally, the patient had a posterior wound over the olecranon at the level of the distal 7-8 cm of the arm. We debrided this wound edge, unroofed it and found there was no gross contamination of the connected bursa, so we irrigated deep with 1 L of normal saline under bulb syringe pressure with antibiotics inside. We then debrided 1-2 mm proximal, 1 mm distal to the wound, dissected the edges free and undermined it, allowed the edges to coapt. We sutured with a combination of 3-0 Monocryl subcutaneous and then the superficial epidermal suture with 3-0 nylon mattress pattern. Hemostasis was excellent. On this side, we also placed bacitracin, Adaptic dressing in all sites. Then with a Kerlix on all sites, left to the right, we placed the patient in a sugar-tong splint. The patient left the operating room without evidence of anesthetic or operative complication. Job ID: [id number]
[2018-08-15] MEDS: hydrALAZINE 20 MG/ML VIAL SLOW IVP PRN (18:33)
[2018-08-15] MEDS: Atorvastatin Calcium 40 MG TAB PO SCH (20:29)
[2018-08-15] MEDS: Cyclobenzaprine 10 MG TAB PO PRN (20:30)
[2018-08-15] MEDS: Lidocaine 5% Patch TD SCH (20:30)
[2018-08-15] MEDS ORDERED: diphenhydrAMINE 50 MG CAP PO SCH (23:30)
[2018-08-15] MEDS: Labetalol HCl 100 MG/20 ML VIAL SLOW IVP PRN (23:42)
[2018-08-16] MEDS: hydrALAZINE 20 MG/ML VIAL SLOW IVP PRN (03:39)
[2018-08-16] MEDS: HYDROcodone/Acetaminophen 10/325 mg Tablet PO PRN ×4 (03:39→18:38)
[2018-08-16] MEDS: Acetaminophen 325 MG TAB PO SCH ×4 (05:21→23:27)
[2018-08-16] MEDS: traMADol HCl 50 MG TAB PO SCH ×4 (05:21→23:27)
[2018-08-16] MEDS: Heparin 5,000 UNITS/ML VIAL SC SCH ×3 (05:22→21:09)
[2018-08-16] MEDS: Ascorbic Acid 500 mg Chewable Tablet PO SCH (08:12)
[2018-08-16] MEDS: Ferrous Sulfate 325 MG TAB PO SCH ×2 (08:12→17:35)
[2018-08-16] MEDS: busPIRone HCl 5 MG TAB PO SCH ×2 (08:13→21:07)
[2018-08-16] MEDS: Amlodipine 10 MG TAB PO SCH (08:13)
[2018-08-16] MEDS: Cyclobenzaprine 10 MG TAB PO PRN (08:13)
[2018-08-16] MEDS: Bupropion 150 MG XL TAB PO SCH (08:13)
[2018-08-16] MEDS: Bacitracin Zinc 1 Packet TOP SCH ×2 (08:13→21:07)
[2018-08-16] MEDS: Gabapentin 300 MG CAP PO SCH ×3 (08:13→21:08)
[2018-08-16] MEDS: Lidocaine Patch Removal 1 EACH TOP SCH (08:14)
[2018-08-16] MEDS: Polyethylene Glycol 3350 17 GM Packet PO SCH (08:15)
[2018-08-16] MEDS: Senokot S 8.6-50 MG TAB PO SCH ×2 (08:15→21:08)
[2018-08-16] MEDS ORDERED: cloNIDine 0.1 MG TAB PO SCH (09:00)
[2018-08-16] MEDS: Labetalol HCl 100 MG/20 ML VIAL SLOW IVP PRN (09:31)
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
[2018-08-16] MEDS: cloNIDine 0.1 MG TAB PO SCH (21:07)
[2018-08-16] MEDS: Atorvastatin Calcium 40 MG TAB PO SCH (21:07)
[2018-08-16] MEDS: Lidocaine 5% Patch TD SCH (21:08)
[2018-08-17] MEDS: Cyclobenzaprine 10 MG TAB PO PRN ×2 (04:28→14:31)
[2018-08-17] MEDS: HYDROcodone/Acetaminophen 10/325 mg Tablet PO PRN ×3 (04:29→12:41)
[2018-08-17] MEDS: traMADol HCl 50 MG TAB PO SCH ×4 (05:49→23:22)
[2018-08-17] MEDS: Heparin 5,000 UNITS/ML VIAL SC SCH ×3 (05:49→21:09)
[2018-08-17] MEDS: Acetaminophen 325 MG TAB PO SCH ×4 (05:49→23:22)
[2018-08-17 06:17] LABS: #Basophils 0.1 thou/uL (0.0-0.2); #Eosinphils 0.5 thou/uL (0.0-0.7); #Lymphocytes 2.3 thou/uL (1.20-3.40); #Monocytes 1.2 thou/uL (0.11-0.59); #Neutrophils 8.6 thou/uL (1.40-6.50); %Basophils 0.4 % (0.0-1.0); %Eosinophils 3.9 % (0.0-10.0); %Lymphocytes 17.9 % (21.0-51.0); %Monocytes 9.7 % (0.0-10.0); %Neutrophils 68.2 % (42.0-75.0); Hemoglobin 9.6 g/dL (14.0-18.0); Mean Corpuscular HGB CONC 32.6 g/dL (32.0-36.0); Mean Corpuscular Hemoglobin 29.8 pg (27.0-31.0); Mean Corpuscular Volume 91.4 fL (78.0-98.0); Mean Platelet Volume 6.8 fL (7.4-10.4); Platelet Count 349 thou/uL (130-400); Red Blood Cell (RBC) Count 3.21 mill/uL (4.70-6.10); White Blood Cell (WBC) Count 12.7 thou/uL (4.8-10.8)
[2018-08-17 06:41] LABS: Anion Gap 12 mmol/L (10-20); BUN (Urea Nitrogen) 12 mg/dL (8.4-25.7); Calc. Creatinine Clearance 176 mL/min (70-130); Calcium 9.1 mg/dL (7.8-10.44); Carbon Dioxide 24 mmol/L (23-31); Chloride 102 mmol/L (98-107); Estimated GFR-MDRD Greater than 90; Glucose 104 mg/dL (80-115); Magnesium 1.8 mg/dL (1.6-2.6); Phosphorus 3.3 mg/dL (2.3-4.7); Sodium 134 mmol/L (136-145)
[2018-08-17] MEDS: Bacitracin Zinc 1 Packet TOP SCH ×2 (08:24→21:04)
[2018-08-17] MEDS: Gabapentin 300 MG CAP PO SCH ×3 (08:25→21:04)
[2018-08-17] MEDS: Polyethylene Glycol 3350 17 GM Packet PO SCH (08:25)
[2018-08-17] MEDS: Ascorbic Acid 500 mg Chewable Tablet PO SCH (08:25)
[2018-08-17] MEDS: Bupropion 150 MG XL TAB PO SCH (08:25)
[2018-08-17] MEDS: Senokot S 8.6-50 MG TAB PO SCH ×2 (08:25→21:08)
[2018-08-17] MEDS: busPIRone HCl 5 MG TAB PO SCH ×2 (08:25→21:08)
[2018-08-17] MEDS: Ferrous Sulfate 325 MG TAB PO SCH ×2 (08:25→17:18)
[2018-08-17] MEDS: cloNIDine 0.1 MG TAB PO SCH ×2 (08:26→21:08)
[2018-08-17] MEDS: Amlodipine 10 MG TAB PO SCH (08:26)
[2018-08-17] MEDS: Lidocaine Patch Removal 1 EACH TOP SCH (08:26)
[2018-08-17] MEDS ORDERED: Sodium Phosphate 15 MMOL in Sodium Chloride 0.9% 250 ML 250 ML IVPB SCH (08:30)
[2018-08-17] MEDS ORDERED: Magnesium 2 GM/50 ML 2 GM in Premix Bag 1 BAG IVPB SCH (08:30)
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
[2018-08-17] MEDS: Atorvastatin Calcium 40 MG TAB PO SCH (21:04)
[2018-08-17] MEDS: Lidocaine 5% Patch TD SCH (21:10)
[2018-08-18] MEDS: Acetaminophen 325 MG TAB PO SCH ×3 (05:56→17:46)
[2018-08-18] MEDS: traMADol HCl 50 MG TAB PO SCH ×3 (05:56→17:46)
[2018-08-18] MEDS: Heparin 5,000 UNITS/ML VIAL SC SCH ×2 (05:57→15:04)
[2018-08-18] MEDS: Polyethylene Glycol 3350 17 GM Packet PO SCH (09:14)
[2018-08-18] MEDS: Senokot S 8.6-50 MG TAB PO SCH (09:15)
[2018-08-18] MEDS: Ascorbic Acid 500 mg Chewable Tablet PO SCH (09:15)
[2018-08-18] MEDS: Ferrous Sulfate 325 MG TAB PO SCH ×2 (09:15→17:46)
[2018-08-18] MEDS: busPIRone HCl 5 MG TAB PO SCH (09:15)
[2018-08-18] MEDS: Bupropion 150 MG XL TAB PO SCH (09:15)
[2018-08-18] MEDS: cloNIDine 0.1 MG TAB PO SCH (09:16)
[2018-08-18] MEDS: Gabapentin 300 MG CAP PO SCH ×2 (09:16→15:04)
[2018-08-18] MEDS: Amlodipine 10 MG TAB PO SCH (09:16)
[2018-08-18] MEDS: Bacitracin Zinc 1 Packet TOP SCH (09:16)
[2018-08-18] MEDS: Lidocaine Patch Removal 1 EACH TOP SCH (09:17)
[2018-08-18] MEDS: HYDROcodone/Acetaminophen 10/325 mg Tablet PO PRN (10:22)
[2018-08-18 12:01] VITALS: TEMP 98.6
[2018-08-18 16:18] VITALS: BP 120/79
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
== END 2018-08-18 18:15 | DRG 958 ==
LOC: ERS 09:10 → SURG A 15:49
PROVIDERS: ADMIT Orthopaedic Surgery; ATTEND Orthopaedic Surgery
PROC: 0QSH35Z Reposition Left Tibia with External Fixation Device, Percutaneous Approach (ICD-10-PCS; 2018-08-09)
PROC: 0JQJ0ZZ Repair Right Hand Subcutaneous Tissue and Fascia, Open Approach (ICD-10-PCS; 2018-08-09)
PROC: 0JQ00ZZ Repair Scalp Subcutaneous Tissue and Fascia, Open Approach (ICD-10-PCS; 2018-08-09)
PROC: 0W9900Z Drainage of Right Pleural Cavity with Drainage Device, Open Approach (ICD-10-PCS; 2018-08-09)
PROC: 0QPHX5Z Removal of External Fixation Device from Left Tibia, External Approach (ICD-10-PCS; 2018-08-11)
PROC: 02HV33Z Insertion of Infusion Device into Superior Vena Cava, Percutaneous Approach (ICD-10-PCS; 2018-08-12)
PROC: B548ZZA Ultrasonography of Superior Vena Cava, Guidance (ICD-10-PCS; 2018-08-12)
PROC: 0PSQ04Z Reposition Left Metacarpal with Internal Fixation Device, Open Approach (ICD-10-PCS; principal; 2018-08-13)
PROC: 0HBQXZZ Excision of Finger Nail, External Approach (ICD-10-PCS; 2018-08-13)
DX: S27.0XXA Traumatic pneumothorax, initial encounter (principal); S82.252B Displaced comminuted fracture of shaft of left tibia, initial encounter for open fracture type I or II; S62.311B Displaced fracture of base of second metacarpal bone, left hand, initial encounter for open fracture; S82.452B Displaced comminuted fracture of shaft of left fibula, initial encounter for open fracture type I or II; S62.317B Displaced fracture of base of fifth metacarpal bone, left hand, initial encounter for open fracture; S22.41XA Multiple fractures of ribs, right side, initial encounter for closed fracture; N17.9 Acute kidney failure, unspecified; V20.4XXA Motorcycle driver injured in collision with pedestrian or animal in traffic accident, initial encounter; Y92.413 State road as the place of occurrence of the external cause; S01.01XA Laceration without foreign body of scalp, initial encounter; F17.220 Nicotine dependence, chewing tobacco, uncomplicated; T79.7XXA Traumatic subcutaneous emphysema, initial encounter; Z23 Encounter for immunization; F32.9 Major depressive disorder, single episode, unspecified; S01.312A Laceration without foreign body of left ear, initial encounter; R00.0 Tachycardia, unspecified; S61.412A Laceration without foreign body of left hand, initial encounter; S30.810A Abrasion of lower back and pelvis, initial encounter; M50.30 Other cervical disc degeneration, unspecified cervical region; S60.121A Contusion of right index finger with damage to nail, initial encounter; S92.912A Unspecified fracture of left toe(s), initial encounter for closed fracture; G89.11 Acute pain due to trauma; I95.9 Hypotension, unspecified; I10 Essential (primary) hypertension; E83.39 Other disorders of phosphorus metabolism; B19.20 Unspecified viral hepatitis C without hepatic coma; E78.5 Hyperlipidemia, unspecified; G47.30 Sleep apnea, unspecified; Z88.0 Allergy status to penicillin; Z79.899 Other long term (current) drug therapy
CPT/HCPCS: 29515; 36415; 36569; 70450; 71045; 71260; 72125; 72170; 74177; 76000; 80048; 80053; 82805; 83605; 83690; 83735; 84100; 85007; 85025; 85027; 85610; 85730; 86850; 86900; 86901; 90471; 90715; 93005; 94660; 96361; 96365; 96375; 96376; C1713; G0390; J0131; J0360; J0690; J1100; J1170; J1200; J1644; J1885; J2001; J2270; J2370; J2405; J2704; J2765; J3010; J3370; J3475; J3490; J7050; J7620; P9045; Q0153; Q9966; S0020; S0028

== ENCOUNTER 2018-09-04 09:46 | Outpatient (CLI) | payer OTHER ==
--- NOTE | 2018-09-04 10:08 | RAD ---
XR Chest Pa Lat STANDARD History: Rib pain Comparison: Radiograph 08/27/2018 Findings: Moderate layering right pleural effusion with apical capping. Left lung is clear. Heart siz e appears normal. Multiple displaced right rib fractures. Impression: No significant interval healing of the numerous displaced right rib fractures with layeri ng right moderate effusion.
== END 2018-09-04 09:47 | disposition home or self-care (01) ==
LOC: RAD 09:46
PROVIDERS: ATTEND Physician Assistant Medical
DX: S22.41XD Multiple fractures of ribs, right side, subsequent encounter for fracture with routine healing (principal); J93.9 Pneumothorax, unspecified; J90 Pleural effusion, not elsewhere classified
CPT/HCPCS: 71046

== ENCOUNTER 2018-09-09 11:06 | Day surgery (SDC) | payer OTHER ==
[2018-09-08 08:31] VITALS: BMI 33.0
[2018-09-09] MEDS ORDERED: PROPOFOL 200 MG/20 ML VIAL ONE (14:04)
[2018-09-09] MEDS ORDERED: Ketorolac Tromethamine 30 MG/ML VIAL ONE (14:04)
[2018-09-09] MEDS ORDERED: Dexamethasone 20 MG/5 ML VIAL ONE (14:04)
[2018-09-09] MEDS ORDERED: Ondansetron PF 4 MG/2 ML Vial ONE (14:04)
[2018-09-09] MEDS ORDERED: Lidocaine 1% PF 5 ML VIAL ONE (14:04)
[2018-09-09] MEDS ORDERED: Bacitracin Zinc Ointment 30 gm TUBE ONE (14:38)
[2018-09-09] MEDS ORDERED: Bupivacaine PF 0.5% 30 ML VIAL ONE (14:38)
[2018-09-09] MEDS ORDERED: Sodium Chloride 0.9% 0 ML ONE (14:38)
[2018-09-09] MEDS ORDERED: Midazolam HCl 2 mg/2 ml Vial ONE (14:44)
[2018-09-09] MEDS ORDERED: Fentanyl 100 MCG/2 ML VIAL ONE (14:44)
[2018-09-09] MEDS ORDERED: Clindamycin/D5W 600 mg/50 ml Premix Bag ONE (14:47)
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
--- NOTE | 2018-09-09 20:19 | RAD ---
RIGHT HAND TWO VIEWS: 09/09/18 HISTORY: Intraoperative film. COMPARISON: Previous examination of 08/13/18. Open reduction and internal fixation of the base of fifth metacarpal fracture is again demonstrated. The pins that had been placed in the second metacarpal have been removed. IMPRESSION: Postoperative changes of the hand. POS: [facility]
== END 2018-09-09 18:30 | disposition home or self-care (01) ==
LOC: SDC 11:06
PROVIDERS: ATTEND Orthopaedic Surgery Hand Surgery
PROC: 0RPW0JZ Removal of Synthetic Substitute from Right Finger Phalangeal Joint, Open Approach (ICD-10-PCS; principal; 2018-09-09)
DX: T84.84XA Pain due to internal orthopedic prosthetic devices, implants and grafts, initial encounter (principal); M19.90 Unspecified osteoarthritis, unspecified site; F17.220 Nicotine dependence, chewing tobacco, uncomplicated; F17.290 Nicotine dependence, other tobacco product, uncomplicated; F32.9 Major depressive disorder, single episode, unspecified; I10 Essential (primary) hypertension; Z79.899 Other long term (current) drug therapy; Z88.0 Allergy status to penicillin
CPT/HCPCS: 76000; J0690; J1100; J1885; J2001; J2250; J2405; J2704; J3010; J3490; S0020

== ENCOUNTER 2018-09-18 09:21 | Outpatient (CLI) | payer OTHER ==
--- NOTE | 2018-09-18 10:05 | RAD ---
PA AND LATERAL CHEST: HISTORY: Right-sided rib fracture. COMPARISON: 09/04/2018 study. FINDINGS: Heart size is within normal limits. The right-sided pleural lung changes persistent with some associ ated minimal atelectatic change. Right-sided rib fractures are again demonstrated. Left lung remain s clear. IMPRESSION: Persistent blunting to the costophrenic angle consistent with some persistent pleural effusion versus pleural thickening. No signs of pneumothorax. Healing right rib fractures. POS: [facility]
== END 2018-09-18 09:22 | disposition home or self-care (01) ==
LOC: RAD 09:21
PROVIDERS: ATTEND Physician Assistant
DX: S22.41XD Multiple fractures of ribs, right side, subsequent encounter for fracture with routine healing (principal)
CPT/HCPCS: 71046

== ENCOUNTER 2019-02-24 10:15 | Observation (INO) | payer OTHER ==
[2019-02-24 12:06] LABS: #Basophils 0.1 thou/uL (0.0-0.2); #Eosinphils 0.1 thou/uL (0.0-0.7); #Lymphocytes 2.3 thou/uL (1.20-3.40); #Monocytes 0.7 thou/uL (0.11-0.59); #Neutrophils 4.6 thou/uL (1.40-6.50); %Basophils 1.3 % (0.0-1.0); %Eosinophils 1.7 % (0.0-10.0); %Lymphocytes 29.5 % (21.0-51.0); %Monocytes 8.3 % (0.0-10.0); %Neutrophils 59.2 % (42.0-75.0); Mean Corpuscular HGB CONC 33.6 g/dL (32.0-36.0); Mean Corpuscular Hemoglobin 29.4 pg (27.0-31.0); Mean Corpuscular Volume 87.6 fL (78.0-98.0); Mean Platelet Volume 7.8 fL (7.4-10.4); Platelet Count 262 thou/uL (130-400); RBC Distribution Width 12.4 % (11.5-14.5); Red Blood Cell (RBC) Count 4.75 mill/uL (4.70-6.10); White Blood Cell (WBC) Count 7.8 thou/uL (4.8-10.8)
[2019-02-24 12:27] LABS: Anion Gap 13 mmol/L (10-20); BUN (Urea Nitrogen) 13 mg/dL (8.4-25.7); Calc. Creatinine Clearance 138 mL/min (70-130); Calcium 9.2 mg/dL (7.8-10.44); Carbon Dioxide 25 mmol/L (23-31); Chloride 105 mmol/L (98-107); Estimated GFR-MDRD 88; Glucose 113 mg/dL (80-115); Potassium 3.9 mmol/L (3.5-5.1); Sodium 139 mmol/L (136-145)
[2019-02-24] MEDS ORDERED: Fentanyl 100 MCG/2 ML VIAL SLOW IVP PRN (13:22)
[2019-02-24] MEDS ORDERED: Ondansetron PF 4 MG/2 ML Vial IV PRN (13:22)
[2019-02-24] MEDS ORDERED: traMADol HCl 50 MG TAB PO PRN (13:22)
[2019-02-24] MEDS ORDERED: Communication Order-Pharmacy FS SCH (13:30)
[2019-02-24] MEDS ORDERED: Fentanyl 100 MCG/2 ML VIAL ONE ×5 (13:46→17:10)
[2019-02-24] MEDS ORDERED: Bupivacaine HCl 0.5%/Epinephrine 1:200,000/PF 30 ml Vial ONE (14:40)
[2019-02-24] MEDS ORDERED: Ondansetron PF 4 MG/2 ML Vial ONE (14:40)
[2019-02-24] MEDS ORDERED: PROPOFOL 200 MG/20 ML VIAL ONE (14:40)
[2019-02-24] MEDS ORDERED: Lidocaine 1% PF 5 ML VIAL ONE (14:40)
[2019-02-24] MEDS ORDERED: Dexamethasone 20 MG/5 ML VIAL ONE (14:40)
[2019-02-24] MEDS ORDERED: Ondansetron HCl/PF 4 MG/2 ML Vial IVP PRN ×2 (14:58→20:09)
[2019-02-24] MEDS ORDERED: Promethazine HCl 25 MG/ML VIAL IM PRN (14:58)
[2019-02-24] MEDS ORDERED: Promethazine HCl 25 MG/ML VIAL SLOW IVP PRN (14:58)
--- NOTE | 2019-02-24 15:54 | RAD ---
Exam: XR Tib Fib Lt Leg 2 View HISTORY: Left tibia hardware removal. COMPARISON: Fluoroscopic images left tibia and fibula 08/11/2018. FINDINGS/IMPRESSION: The medial plate and screws transfixing the fracture of the distal tibia have been removed. An intram edullary frank with proximal and distal interlocking screws now transfix the fracture distal tibia. Fracture fibular diaphysis is again seen with adjacent heterotopic ossification but persistent defect present. Correlation with intraoperative findings is recommended. Fluoroscopy: Total fluoroscopy time of 138.3 seconds with total dose of 7.47 mGy.
[2019-02-24] MEDS ORDERED: Morphine 2 MG/ML SYRINGE ONE ×4 (17:22→18:55)
[2019-02-24] MEDS ORDERED: hydrALAZINE 20 MG/ML VIAL ONE (17:49)
[2019-02-24] MEDS ORDERED: Morphine Sulfate 2 MG/ML SYRINGE SLOW IVP PRN (20:09)
[2019-02-24] MEDS ORDERED: PACU-Morphine 4MG/ML VIAL SLOW IVP PRN (20:09)
[2019-02-24] MEDS ORDERED: Promethazine HCl 25 MG/ML VIAL IM/IV PRN (20:09)
[2019-02-24] MEDS ORDERED: Non-Formulary Medication 1 EACH PO PRN (20:09)
[2019-02-24] MEDS ORDERED: Atorvastatin Calcium 40 MG TAB PO SCH (21:00)
[2019-02-24] MEDS: CEFAZOLIN 2 GM in Premix Bag 1 BAG IVPB SCH ×2 (21:23→23:15)
[2019-02-24] MEDS: Gabapentin 300 MG CAP PO SCH ×2 (21:24→21:29)
[2019-02-24] MEDS: cloNIDine 0.1 MG TAB PO SCH (21:26)
[2019-02-24] MEDS: Aspirin 81 mg Enteric Coated Tablet PO SCH (21:26)
[2019-02-24] MEDS: Famotidine 20 MG TAB PO SCH (21:27)
[2019-02-24] MEDS: busPIRone HCl 10 MG TAB PO SCH (21:29)
[2019-02-24] MEDS: HYDROcodone/Acetaminophen 10/325 mg Tablet PO PRN (21:29)
[2019-02-24 22:27] VITALS: BMI 34.6
[2019-02-24] MEDS: Ferrous Sulfate 325 MG TAB PO SCH (23:15)
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
[2019-02-25] MEDS ORDERED: HYDROcodone/Acetaminophen 10/325 mg Tablet ONE (04:08)
[2019-02-25] MEDS: Gabapentin 300 MG CAP PO SCH (08:45)
[2019-02-25] MEDS: Ferrous Sulfate 325 MG TAB PO SCH (08:45)
[2019-02-25] MEDS: Famotidine 20 MG TAB PO SCH (08:45)
[2019-02-25] MEDS: Aspirin 81 mg Enteric Coated Tablet PO SCH (08:45)
[2019-02-25] MEDS: busPIRone HCl 10 MG TAB PO SCH (08:45)
[2019-02-25] MEDS ORDERED: Bupropion 150 MG XL TAB PO SCH (09:00)
[2019-02-25] MEDS ORDERED: Tamsulosin HCl 0.4 MG CAP PO SCH (09:00)
[2019-02-25] MEDS ORDERED: Amlodipine 10 MG TAB PO SCH (09:00)
[2019-02-25] MEDS: HYDROcodone/Acetaminophen 10/325 mg Tablet PO PRN (09:25)
[2019-02-25] MEDS: CEFAZOLIN 2 GM in Premix Bag 1 BAG IVPB SCH (12:22)
[2019-02-25] MEDS: cloNIDine 0.1 MG TAB PO SCH (12:25)
[2019-02-25 13:35] VITALS: BP 122/69; TEMP 98.3
[2019-02-25 14:13] LABS: #Lymphocytes 2.2 thou/uL (1.20-3.40); #Monocytes 1.9 thou/uL (0.11-0.59); #Neutrophils 9.4 thou/uL (1.40-6.50); %Basophils 0.3 % (0.0-1.0); %Eosinophils 0.1 % (0.0-10.0); %Monocytes 14.3 % (0.0-10.0); %Neutrophils 69.3 % (42.0-75.0); Hemoglobin 11.9 g/dL (14.0-18.0); Mean Corpuscular HGB CONC 33.6 g/dL (32.0-36.0); Mean Corpuscular Hemoglobin 29.3 pg (27.0-31.0); Mean Corpuscular Volume 87.4 fL (78.0-98.0); Mean Platelet Volume 8.5 fL (7.4-10.4); Platelet Count 249 thou/uL (130-400); RBC Distribution Width 12.5 % (11.5-14.5); Red Blood Cell (RBC) Count 4.05 mill/uL (4.70-6.10); White Blood Cell (WBC) Count 13.6 thou/uL (4.8-10.8)
[2019-02-25] MEDS ORDERED: FLU VACC QS2019-20(6MOS UP)/PF 60 MCG/0.5 ML SYRINGE IM ONE (21:00)
== END 2019-02-25 13:58 | disposition home or self-care (01) ==
LOC: SDC 10:15 → SURG A 19:34
PROVIDERS: ADMIT Orthopaedic Surgery; ATTEND Orthopaedic Surgery
PROC: 0QSH04Z Reposition Left Tibia with Internal Fixation Device, Open Approach (ICD-10-PCS; principal; 2019-02-25)
DX: S82.872K Displaced pilon fracture of left tibia, subsequent encounter for closed fracture with nonunion (principal); M21.062 Valgus deformity, not elsewhere classified, left knee; F17.290 Nicotine dependence, other tobacco product, uncomplicated; I10 Essential (primary) hypertension; Z79.899 Other long term (current) drug therapy; Z88.0 Allergy status to penicillin; V20.4 Motorcycle driver injured in collision with pedestrian or animal in traffic accident
CPT/HCPCS: 76000; 80048; 85025; 96365; C1713; C1769; G0378; J0360; J0670; J0690; J1100; J2001; J2270; J2405; J2704; J3010